=== PATIENT | female | born 1970 | race Two or more races ===

== ENCOUNTER 2019-11-16 09:37 | Emergency (ER) | payer SELFPAY ==
[~2019-11-16] VITALS: Ht 165.1 cm; Wt 95.0 kg
[2019-11-16 09:56] VITALS: BP 115/65
== END 2019-11-16 11:01 | disposition home or self-care (01) ==
LOC: ER 09:37
DX: Z03.818 Encounter for observation for suspected exposure to other biological agents ruled out (principal); R50.9 Fever, unspecified; R11.10 Vomiting, unspecified; R07.89 Other chest pain; R06.02 Shortness of breath; M79.18 Myalgia, other site; I10 Essential (primary) hypertension; R73.03 Prediabetes
CPT/HCPCS: 71045; 93005; 99285; C9803; U0003